=== PATIENT | male | born 1950 | race Caucasian/White ===

== ENCOUNTER 2017-04-26 14:03 | Inpatient (IN) | payer OTHER ==
[2017-04-26] MEDS ORDERED: Adacel Vial IM ONE ×2 (14:17→14:45)
[2017-04-26] MEDS ORDERED: XYLOCAINE 1%/Epi 1:100000 MDV 20 ML IJ ONE (14:18)
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
[2017-04-26] MEDS ORDERED: XYLOCAINE 1%/Epi 1:100000 MDV 20 ML ONE (14:42)
[2017-04-26 14:46] LABS: Lactic Acid 3.1 (0.4-2.0)
[2017-04-26 14:48] LABS: BASOPHIL % 0.4 % (0.0-0.4); Eosinophil % 2.2 % (0.00-5.0); Granulocytes % 78.7 % (36.0-66.0); Lymphocytes % 7.7 % (24.0-44.0); Mean Cell Volume 63.3 fl (78-100); Mean Corpuscular Hemoglobin 17.5 pg (26-32); Platelet Count 91 K/mm3 (150-450); Red Cell Distribution Width 22.2 % (11.5-14.0); White Blood Count 5.6 K/mm3 (4.0-10.5)
[2017-04-26 15:11] LABS: ALBUMIN 3.3 g/dL (3.4-5.0); ALKALINE PHOSPHATASE 78 U/L (46-116); ANION GAP 10.8 MEQ/L (5-15); BLOOD UREA NITROGEN 16 mg/dL (9-20); CHLORIDE 100 mEq/L (98-107); Carbon Dioxide 28.2 mEq/L (21-32); Glucose 434 MG/DL (70-110); Potassium 4.5 mEq/L (3.5-5.1); SGOT/AST 31 U/L (15-37); SGPT/ALT 44 U/L (12-78); SODIUM 135 mEq/L (136-145); Total Protein 7.4 gm/dL (6.4-8.2)
[2017-04-26 15:22] LABS: BAND 1 % (0.0-2.0); Eosinophil 2 % (0.00-3.0); Total Cells Counted 100
[2017-04-26 15:24] LABS: ANISOCYTOSIS 3+; Hypochromia 3+; Platelet Estimate DECREASED (NORMAL); Poikilocytosis 3+; Polychromasia 1+
[2017-04-26 15:25] LABS: Schistocytes RARE; Targert Cells FEW
[2017-04-26] MEDS ORDERED: Hydromorphone 1 mg/ml Ampule IV ONE (15:25)
[2017-04-26] MEDS ORDERED: Pepcid 20 MG VIAL IV ONE ×2 (15:26→15:32)
[2017-04-26] MEDS ORDERED: PHARMACY DOSING REQUEST IJ ONE (15:26)
[2017-04-26] MEDS ORDERED: ROCEPHIN 1 Gm-D5w 50 ml Bag** 1 G/50 ML IVPB IV STA (15:26)
[2017-04-26] MEDS ORDERED: NovoLOG Insulin SQ ONE (15:28)
[2017-04-26] MEDS ORDERED: Sodium Chloride 0.9% 1000 ML 1,000 ML IV SCH (15:30)
[2017-04-26] MEDS ORDERED: Hydromorphone 1 mg/ml Ampule ONE (15:34)
[2017-04-26] MEDS ORDERED: ROCEPHIN 1 Gm-D5w 50 ml Bag** 1 G/50 ML IVPB IV ONE (15:34)
[2017-04-26 15:41] LABS: Collection Type VOID; Leukocyte Esterase NEGATIVE (NEGATIVE)
[2017-04-26 15:42] LABS: ADD URINE CULTURE? NO (NO); Bilirubin NEGATIVE (NEGATIVE); Blood NEGATIVE Ery/ul (0-5); COMPLETE URINE MICROSCOPIC? NO; Glucose 1000 mg/dL (NEGATIVE)
[2017-04-26 15:44] LABS: INR 1.15 (0.8-3.0); PROTIME 12.8 SECONDS (8.83-12.87)
[2017-04-26 15:47] LABS: PTT 33.3 SECONDS (24.1-36.1)
[2017-04-26] MEDS ORDERED: NovoLOG Insulin ONE (16:04)
[2017-04-26] MEDS: VANCOCIN 1 GM VIAL*** 1.25 GM in Sodium Chloride 0.9% 250 ML 250 ML IV SCH (16:33)
[2017-04-26] MEDS ORDERED: TYLENOL 325 MG PO PRN (16:52)
[2017-04-26] MEDS ORDERED: PHARMACY DOSING REQUIRED: VANCOMYCIN IV ONE (16:52)
[2017-04-26] MEDS: NovoLOG Insulin SQ PRN ×2 (20:10→23:57)
[2017-04-27] MEDS: NovoLOG Insulin SQ PRN ×6 (03:41→23:40)
[2017-04-27] MEDS: VANCOCIN 1 GM VIAL*** 1.25 GM in Sodium Chloride 0.9% 250 ML 250 ML IV SCH ×2 (05:47→17:02)
[2017-04-27 06:35] LABS: Mean Cell Volume 63.5 fl (78-100); Mean Corpuscular Hemoglobin 17.6 pg (26-32); Platelet Count 84 K/mm3 (150-450); Red Blood Count 3.97 M/mm3 (4.1-5.6); Red Cell Distribution Width 22.2 % (11.5-14.0); White Blood Count 4.7 K/mm3 (4.0-10.5)
[2017-04-27] MEDS: Sodium Chloride 0.9% 1000 ML 1,000 ML IV SCH ×2 (06:52→12:01)
[2017-04-27 07:16] LABS: ANION GAP 10.1 MEQ/L (5-15); BLOOD UREA NITROGEN 11 mg/dL (9-20); CHLORIDE 103 mEq/L (98-107); Carbon Dioxide 29.6 mEq/L (21-32); Glucose 149 MG/DL (70-110); Potassium 3.9 mEq/L (3.5-5.1); SODIUM 139 mEq/L (136-145)
[2017-04-27] MEDS ORDERED: Ventolin Hfa MDI IH PRN (07:55)
[2017-04-27] MEDS ORDERED: ULTRAM 50 MG PO PRN (07:55)
[2017-04-27 08:01] LABS: Total Cells Counted 100
[2017-04-27] MEDS: Glucophage 500 MG PO SCH ×2 (08:01→16:54)
[2017-04-27 08:03] LABS: ANISOCYTOSIS 2+; Hypochromia 2+; Platelet Estimate DECREASED (NORMAL); Poikilocytosis 1+
[2017-04-27] MEDS ORDERED: NON-FORMULARY ITEM (Linagliptin [Tradjenta] 5 MG) PO SCH (10:00)
[2017-04-27] MEDS ORDERED: NON-FORMULARY ITEM (Ranitidine Hcl [Ranitidine Hcl] 300 MG) PO SCH (10:00)
[2017-04-27] MEDS: Glucotrol Xl 10 MG PO SCH ×2 (10:10→21:09)
[2017-04-27] MEDS: Pepcid 20 MG PO SCH (10:11)
[2017-04-27] MEDS: Januvia 50 MG PO SCH (10:11)
[2017-04-27] MEDS: Miralax Powder 17GM PACKET PO SCH (10:11)
[2017-04-27] MEDS: ROCEPHIN 1 Gm-D5w 50 ml Bag** 1 G/50 ML IVPB IV SCH (12:01)
[2017-04-27] MEDS ORDERED: Lactated Ringers 1,000 ML IV SCH (16:00)
[2017-04-27] MEDS ORDERED: Quelicin Fliptop 200 MG/10 ML IV ONE (16:14)
[2017-04-27] MEDS ORDERED: DIPRIVAN 200 MG/20 ML IV ONE (16:14)
[2017-04-27] MEDS ORDERED: SUBLIMAZE 100 MCG/2 ML IV ONE (16:14)
[2017-04-27] MEDS: NORCO 5/325 MG PO PRN ×2 (16:59→21:09)
[2017-04-27] MEDS: PROVENTIL COMMON CANISTER IH PRN (17:05)
[2017-04-27] MEDS ORDERED: INSULIN GLARGINE HUM REC ANLOG 10 UNIT SQ SCH (22:00)
[2017-04-27] MEDS ORDERED: Lantus Insulin SQ SCH (22:00)
[2017-04-28] MEDS: NovoLOG Insulin SQ PRN ×5 (03:37→21:58)
[2017-04-28] MEDS: VANCOCIN 1 GM VIAL*** 1.25 GM in Sodium Chloride 0.9% 250 ML 250 ML IV SCH (05:45)
[2017-04-28] MEDS: Glucophage 500 MG PO SCH ×2 (08:02→17:28)
[2017-04-28] MEDS: NORCO 5/325 MG PO PRN ×2 (08:02→15:39)
[2017-04-28] MEDS: Miralax Powder 17GM PACKET PO SCH (08:48)
[2017-04-28] MEDS: ROCEPHIN 1 Gm-D5w 50 ml Bag** 1 G/50 ML IVPB IV SCH (10:09)
[2017-04-28] MEDS: Pepcid 20 MG PO SCH (10:12)
[2017-04-28] MEDS: Januvia 50 MG PO SCH (10:17)
[2017-04-28] MEDS: Glucotrol Xl 10 MG PO SCH ×2 (10:18→21:59)
[2017-04-28] MEDS ORDERED: Lantus Insulin SQ SCH (14:24)
[2017-04-28 15:37] LABS: Mean Cell Volume 65.8 fl (78-100); Mean Corpuscular Hemoglobin 18.5 pg (26-32); Platelet Count 64 K/mm3 (150-450); Red Blood Count 4.27 M/mm3 (4.1-5.6); Red Cell Distribution Width 23.8 % (11.5-14.0); White Blood Count 3.9 K/mm3 (4.0-10.5)
[2017-04-28 15:40] LABS: ANION GAP 14.1 MEQ/L (5-15); BLOOD UREA NITROGEN 11 mg/dL (9-20); CHLORIDE 101 mEq/L (98-107); Carbon Dioxide 25.8 mEq/L (21-32); Glucose 253 MG/DL (70-110); SODIUM 137 mEq/L (136-145)
[2017-04-28] MEDS: ENOXAPARIN SODIUM SQ SCH (17:28)
[2017-04-28] MEDS: VANCOCIN 1 GM VIAL*** 1.5 GM in Sodium Chloride 0.9% 500 ML 500 ML IV SCH (17:29)
[2017-04-29] MEDS: VANCOCIN 1 GM VIAL*** 1.5 GM in Sodium Chloride 0.9% 500 ML 500 ML IV SCH ×2 (05:41→17:20)
[2017-04-29 06:10] LABS: Mean Cell Volume 65.2 fl (78-100); Platelet Count 92 K/mm3 (150-450); Red Cell Distribution Width 23.9 % (11.5-14.0); White Blood Count 3.7 K/mm3 (4.0-10.5)
[2017-04-29 06:11] LABS: Mean Corpuscular Hemoglobin 18.1 pg (26-32)
[2017-04-29] MEDS: PROVENTIL COMMON CANISTER IH PRN (06:20)
[2017-04-29] MEDS ORDERED: PROVENTIL 2.5 MG/3 ML NEB IH ONE (06:32)
[2017-04-29] MEDS ORDERED: PROVENTIL 2.5 MG/3 ML NEB IH PRN (06:38)
[2017-04-29 06:58] LABS: ANION GAP 8.9 MEQ/L (5-15); BLOOD UREA NITROGEN 11 mg/dL (9-20); CHLORIDE 105 mEq/L (98-107); Carbon Dioxide 29.6 mEq/L (21-32); Glucose 218 MG/DL (70-110); Potassium 4.4 mEq/L (3.5-5.1); SODIUM 139 mEq/L (136-145)
[2017-04-29] MEDS: NovoLOG Insulin SQ PRN ×3 (08:06→17:19)
[2017-04-29] MEDS: Glucophage 500 MG PO SCH ×2 (08:06→17:13)
[2017-04-29] MEDS: NORCO 5/325 MG PO PRN ×2 (08:09→12:57)
--- NOTE | 2017-04-29 08:42 | CONS ---
CONSULT DATE: 04/26/17 REASON FOR CONSULTATION: Abdominal wall abscess. Consultation from medical history. HISTORY OF PRESENT ILLNESS: Patient developed this the last few days over the symphysis pubis, a little bit up to the left, a little bit above. It is firm, indurated, but does have a soft center. It will require a formal incision and debridement. He has ate today. We will do this tomorrow morning. It does not appear to be an urgency. IMPRESSION: 1. LOWER ABDOMINAL WALL ABSCESS. PLAN: I&D.
[2017-04-29] MEDS: Pepcid 20 MG PO SCH ×2 (09:11→09:12)
[2017-04-29] MEDS: Miralax Powder 17GM PACKET PO SCH (09:11)
[2017-04-29] MEDS: Glucotrol Xl 10 MG PO SCH (09:12)
[2017-04-29] MEDS: ROCEPHIN 1 Gm-D5w 50 ml Bag** 1 G/50 ML IVPB IV SCH (09:13)
[2017-04-29] MEDS: Januvia 50 MG PO SCH (09:14)
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
--- NOTE | 2017-04-29 09:22 | OP ---
SURGERY DATE/TIME: 04/27/2017 1528 PREOPERATIVE DIAGNOSIS: Abdominal wall abscess. POSTOPERATIVE DIAGNOSIS: Abdominal wall abscess. PROCEDURE: I&D left lower abdominal wall abscess. SURGEON: Ricky Duke M.D. ANESTHESIA: General. COMPLICATIONS: None. CONDITION: Stable. INDICATION: The patient has abscess lower abdominal wall. DESCRIPTION OF PROCEDURE: Taken to surgery. General anesthetic. Routine prep and drape. There was marked curvilinear incision and 5 cc of pus was expressed. It was totally drained. It was well open. Hemostasis obtained with electrocautery. Iodoform packing applied. Sterile dressing applied. The patient tolerated the procedure satisfactorily.
--- NOTE | 2017-04-29 09:49 | PROG NOTE ---
THIS REPORT WAS AMENDED ON 04/29/17. DATE: 04/28/17 Chart reviewed. Events noted. The patient underwent I&D of suprapubic abscess by surgery yesterday. Postoperatively, he was placed on regular diet per surgery. His Accu-Chek continued to be elevated in 200s. At the time of this evaluation, he is alert and awake. Complains of mild discomfort in suprapubic area. VITALS: BP 144/70, heart rate 75, respiratory rate 16, temperature 97.9, O2 saturation 95% on room air. HEENT: Pallor present. No icterus noted. NECK: No JVD present. CVS: S1 and S2 present. RESPIRATORY: Breath sounds bilaterally diminished and clear to auscultation. ABDOMEN: Soft, nontender. NEURO: He is alert and awake. Answers simple questions. EXTREMITIES: Reveals no edema on bilateral lower extremities. Examination of suprapubic area revealed 4 cm sized and about a cm deep surgical wound in suprapubic region. Scanty serous discharge was present. Local tenderness present. LABORATORY DATA: There were no new labs today. Wound cultures show gram positive, ID and sensitivity is pending. Medications are reviewed. ASSESSMENT: 66 y/o male with impression: 1. SUPRAPUBIC ABSCESS. 2. DIABETES MELLITUS (SUBOPTIMALLY CONTROLLED). 3. ANEMIA. 4. HISTORY OF HYPERTENSION. 5. HISTORY OF CIRRHOSIS (PER REVIEW OF RECORDS FROM [facility]). 6. HISTORY OF ESOPHAGEAL VARICES. 7. HISTORY OF COLONIC ANGIOECTASIAS. 8. ANEMIA. PLAN: 1. Patient's wound care is being carried out including packing/local dressing changes per surgery recommendations. In view of patient's suboptimally controlled Accu-Cheks and nature of wound, patient will benefit from additional IV antibiotics while awaiting his wound culture reports. Once wound culture reports are obtained, will likely change antibiotics based on those. 2. In the meantime, will plan to increase patient's insulin to 15 units and change him to diabetic diet. 3. Continue PRN analgesics. 4. Continue to follow CBC and electrolytes. I had extensive discussion with patient regarding his options about wound care. As per case managementKathy, patient does not meet criteria for home care. Initially, when asked, patient told me that he was not able to afford to drive to hospital for daily wound dressing changes. When I discussed patient not meeting home health criteria, patient states that he may be able to possibly go to his PCP's office for wound dressing changes as their office is just 2 miles from his home. Will contact PCP's office tomorrow and check if that arrangement can be made. Likely discharge tomorrow if improves. Plan was discussed with patient. He seems to be in understanding and agreement. Discussed with charge nurse, Patsy, and patient's nurse, Tamar. ADDENDUM: After evaluation of the patient, I stressed with him the importance of wound care as recommended, compliance with wound care as recommended by surgery.
[2017-04-29 16:28] VITALS: BP 159/73; PULSE 88; O2SAT 97
[2017-04-29] MEDS ORDERED: CLEOCIN 150 MG CAPSULE PO ONE (17:00)
[2017-04-29] MEDS: ENOXAPARIN SODIUM SQ SCH (17:14)
[2017-04-29] MEDS ORDERED: Lantus Insulin SQ SCH (22:00)
--- NOTE | 2017-04-30 08:09 | DS ---
DISCHARGE DIAGNOSES: 1) SUPRAPUBIC ABSCESS STATUS POST INCISION AND DRAINAGE. 2) DIABETES MELLITUS, SUBOPTIMALLY CONTROLLED. 3) ANEMIA, STABLE HEMOGLOBIN AND HEMATOCRIT. 4) HYPERTENSION. 5) CIRRHOSIS. 6) HISTORY OF NONCOMPLIANCE WITH MEDICATIONS. 7) ANXIETY/DEPRESSION. 8) HEPATITIS C. 9) EMPHYSEMA. CONSULTANTS ON CASE: Dr. Duke, surgery. HOSPITAL COURSE: Mannie Jim is a 66 year-old male with past medical history of hypertension, cirrhosis, anemia (history of esophageal varices/colonic telangiectasia as per work up from [facility] last week. He also has been occasionally noncompliant with his medications. He was admitted through [facility] Emergency Room. The patient usually follows with [facility] with Dr. Lexi Valentino. The patient was admitted through the emergency room on 04/26/2017 with abscess in suprapubic area. Initially reportedly started after clipping his hair. The patient has had it for three days. Also he had missed a dose of insulin. Upon initial evaluation in the emergency room he was noted to have blood glucose 434. Also he was noted to have abscess in suprapubic area. There was no reported history of any other trauma or unusual activity. Other lab work up was notable for hemoglobin 7. Liver function tests were unremarkable. UA was essentially negative. White blood cell count was 5.6. Lactic acid was 3.1. The patient was placed on broad spectrum IV antibiotics and IV analgesics. During his further course he was transfused with 1 unit of packed red blood cells with improvement in hemoglobin/hematocrit. The hemoglobin A1C was 9.8. Surgical consultation was obtained and the patient underwent I&D of abscess on 04/27/2017. Postoperatively, he was continued on IV analgesics and broad spectrum IV antibiotics. Also he underwent packing/dressing and local wound care of suprapubic abscess per surgery recommendations. Wound cultures from this area grew methicillin resistant staphylococcus aureus. Sensitivity of those were reviewed. The rest of his course was essentially more or less unremarkable. Accu-Chek's and changed to diabetic diet. His insulin dose was increased. He otherwise improved clinically and remained hemodynamically stable. PHYSICAL EXAMINATION: At the time of this evaluation he is alert, awake, comfortable, still having some mild discomfort in suprapubic area. His packing/dressing was just changed today. He denies any other complaints. VITAL SIGNS: Blood pressure 156/74, heart rate 82, respiratory rate 18, temperature 98F. Oxygen saturation 95-96% on room air. HEENT: Pallor is present. No icterus is noted. NECK: No JVD is present. CVS: S1, S2 present. RESPIRATORY: Breath sounds are bilaterally diminished and clear to auscultation. ABDOMEN: Soft, nontender. Examination of suprapubic area revealed dressing/packing in place. NEURO: He is alert, oriented x3. EXTREMITIES: No edema on bilateral lower extremities. LABORATORY DATA AND TESTS: Labs from today showed CBC with white blood cell 3.7, hemoglobin 8, hematocrit 28.7, PLT 92,000. BMP notable for glucose of 218. Wound cultures as noted. Medications were reviewed. ASSESSMENT: As outlined in discharge diagnosis. PLAN: The patient was admitted with suprapubic abscess and anemia. The patient underwent incision and drainage of abscess and was treated with broad spectrum IV antibiotic. Additionally he was noted to have uncontrolled diabetes mellitus. He also has history of noncompliance with medications as outpatient. He underwent treatment of the same as noted. Treatment of hyperglycemia as noted. Additionally, the patient's records from [facility] were obtained and about a month ago the patient underwent EGD and colonoscopy. His baseline hemoglobin then was between 7 and 8. The patient was transfused 1 unit of packed red blood cells with improvement in hemoglobin/hematocrit and has remained stable since. The rest of his course has been essentially more or less unremarkable. He otherwise is doing well. After discussion with surgical sales representative on the case he is being discharged home in stable condition. Please refer to discharge medication list from 04/29/2017 for details of medications on discharge. I discussed with correctional case records supervisor regarding the help the patient would need for his wound care in regards to packing and other dressing changes. The patient states he lives alone and does not help available at this time. Per case management, home health is available to patient and they can go out to the patient's house every day and help with his dressing changes as recommended per surgery. The patient will follow up with surgery in one week as outpatient and at that time further treatment will be decided per surgical recommendations. The patient otherwise remains hemodynamically stable. I will change the patient's antibiotics to p.o. I have advised the patient to follow up with his primary care physician in one week. Compliance with diet and medications, wound care/dressing changes, follow up appointment as noted was stressed with the patient. Also I have discussed with him at length yesterday and today regarding failure to do so may cause worsening of his infection including additional complications including but not limited to increased risk of sepsis and . I also stressed with him in part of compliance with his diabetic regimen/diet. His further adjustment in diabetic medicine will be done by his primary care physician. I have discussed with the patient at length regarding compliance with his medication. I discussed with him that failure to do might result in further complications including but not limited to risk of diabetic ketoacidosis, myocardial infarction renal failure, etc. The patient was advised to obtain CMP and CBC in one week which will be followed by his primary care physician. I have advised the patient to return to the Emergency Room [facility] if any new signs and symptoms or reappearance of previous signs and symptoms are noted. Please refer to the patient's chart, labs, diagnostic work up and consult notes for details. Please refer to discharge medication list from 04/29/2017 for details of medications on discharge. Again the patient was discharged on Clindamycin for 14 day prescription. Additionally he has been given prescription for Gallion 5/325 mg 1 tablet every six hours as needed, total of 25 tablets. The patient was advised to take his medications as directed. I have discussed with the patient's primary care physician, Dr. Lexi Valentino ([phone]) regarding the patient's current stay, work up results and plan of management. The patient will follow up with her upon discharge. If any questions remain unanswered please feel free to call me at my office ([phone]). Please refer to the patient's chart, labs, diagnostic work up results and consult notes for details. ADDENDUM: Please refer to yesterdays dictated discharge summary for details. I have discussed with the patient that arrangements have been made and he was discharged yesterday as his dressing changes can be done as outpatient by home health agency. Additionally, his pain was well controlled and he could be discharged home on p.o. pain medication in addition to continuing with p.o. antibiotics. The patient seemed to be in understanding of the same including discharge plan as noted. However eventually after I had completed all the discharge instructions/prescriptions with nursing, I was contacted by the patient's nurse, Maira, stating that the patient was upset about being discharged yesterday. I advised her to leave the patient in the hospital for another night so I can address this and talk to him on 04/30/2017 when I made my rounds and address any of the patient's concerns that remained unanswered (although this had been done at length yesterday). However reportedly eventually the patient again changed his mind and decided to go home. The patient was discharged home in stable condition. The patient will follow with his primary care physician. The patient was given his antibiotic dose yesterday prior to discharge. The patient was instructed to comply with medications as directed, comply with follow up appointments and wound care instructions. He was advised to return to the emergency room [facility] if any new signs/symptoms or reappearance of previous signs/symptoms are noted. The patient's clinical condition, work up results, plan of management was discussed including plan after discharge had been discussed with the patient at length. He seems to be in understanding.
== END 2017-04-29 17:35 | disposition home health service (06) | DRG 580 ==
LOC: ED 14:03 → MED SURG 16:45
PROVIDERS: ADMIT General Practice; ATTEND General Practice
PROC: 0W9F0ZX Drainage of Abdominal Wall, Open Approach, Diagnostic (ICD-10-PCS; principal; 2017-04-27)
DX: L02.211 Cutaneous abscess of abdominal wall (principal); I85.00 Esophageal varices without bleeding; B95.62 Methicillin resistant Staphylococcus aureus infection as the cause of diseases classified elsewhere; E11.9 Type 2 diabetes mellitus without complications; Z79.4 Long term (current) use of insulin; D64.9 Anemia, unspecified; I10 Essential (primary) hypertension; K74.60 Unspecified cirrhosis of liver; Z91.14 Patient's other noncompliance with medication regimen; F41.8 Other specified anxiety disorders; B19.20 Unspecified viral hepatitis C without hepatic coma; J43.9 Emphysema, unspecified; E78.5 Hyperlipidemia, unspecified; Z79.899 Other long term (current) drug therapy
CPT/HCPCS: 00400; 36000; 36415; 36430; 80048; 80053; 80202; 81002; 82962; 83036; 83605; 85014; 85018; 85025; 85027; 85610; 85730; 86850; 86900; 86901; 86922; 87070; 87077; 87186; 90471; 90715; 94640; 94760; 96360; 96365; 96372; 99285; J0330; J0696; J1170; J1650; J2704; J3010; J3370; P9016; A9270-GY